=== PATIENT | male | born 1995 | race Caucasian/White ===

== ENCOUNTER 2016-10-20 06:12 | Observation (INO) | payer OTHER ==
[2016-10-20] MEDS ORDERED: LORazepam INJ* 2 MG/ML 1 ML VIAL IV PUSH ONE (08:11)
[2016-10-20 08:29] LABS: Hematocrit 43 % (42-52); Hemoglobin 14.8 g/dl (14.0-18.0); Mean Corpuscular HGB Conc 34 g/dl (31-36); Mean Corpuscular Hemoglobin 30 pg (27-31); Mean Corpuscular Volume 87 fL (80-94); Mean Platelet Volume 10 um3 (7.4-10.4); Red Blood Count 4.99 10^6/ul (4.0-5.4); Red Cell Distribution Width 14 % (10.5-15); White Blood Count 6.7 10^3/ul (3.5-10.8)
[2016-10-20 08:41] LABS: ALT 20 U/L (7-52); AST 22 U/L (13-39); Albumin 4.8 g/dL (3.2-5.2); Alkaline Phosphatase 65 U/L (34-104); Anion Gap 9 mmol/L (2-11); BUN/Creatinine Ratio 19.8 (8-20); Blood Urea Nitrogen 19 mg/dL (6-24); CO2 Carbon Dioxide 26 mmol/L (22-32); Calcium 10.1 mg/dL (8.6-10.3); Chloride 101 mmol/L (101-111); EGFR Non-African American 97.9 (>60); Globulin 3.1 g/dL (2-4); Glucose 99 mg/dL (70-100); Potassium 3.6 mmol/L (3.5-5.0); Sodium 136 mmol/L (133-145); Total Protein 7.9 g/dL (6.4-8.9)
[2016-10-20] MEDS: NS 0.9% 1000 ML* 2,000 ML IV ONE ×2 (08:43→09:18)
[2016-10-20 09:04] LABS: Acetaminophen < 15 mcg/mL; Alcohol < 10 mg/dL (<10); Salicylate < 2.50 mg/dL (<30)
[2016-10-20 09:15] LABS: TSH (Thyroid Stimulating Horm) 3.86 mcIU/mL (0.34-5.60)
[2016-10-20] MEDS: NS 0.9% 1000 ML* 1,000 ML IV SCH ×2 (10:30→22:45)
[2016-10-20] MEDS ORDERED: LORazepam INJ* 2 MG/ML 1 ML VIAL IV PUSH PRN (11:17)
[2016-10-20] MEDS ORDERED: Acetaminophen TAB* 325 MG PO PRN (11:20)
[2016-10-20 11:49] LABS: Creatine Kinase 64 U/L (10-223)
[2016-10-20 12:55] LABS: Urine Bilirubin Negative (Negative); Urine Glucose Negative (Negative); Urine Nitrite Negative (Negative)
[2016-10-20 13:01] LABS: Benzodiazepine Urine Screen None Detected (None Detect)
--- NOTE | 2016-10-20 16:12 | HP ---
HISTORY AND PHYSICAL: DATE OF ADMISSION: 10/20/16 TIME OF EVALUATION: 09:45 a.m. CHIEF COMPLAINT: "I am shaking." HISTORY OF PRESENT ILLNESS: Mr. Carpio is a 21-year-old male with a past medical history of depression who presents to the emergency room with complaints of being jittery, shaky, unable to sleep for the past 3 days. The patient has a history of depression and has been on Pristiq for a couple of years and on Wellbutrin for the past 6 months. He says that he developed a cold last week and he started to take NyQuil and Mucinex over the counter. He was okay during the weekend, but 3 days ago he took 1 Adderall pill "not prescribed to him, provided by a friend" to stay awake and be able to finish a paper. He states that night he was able to sleep for 4 hours, but after that he was not able to sleep since today. He states that this morning he was feeling a little bit of balance when he was taking a shower and after that he noticed that he was very shaky. He lied down and he felt that his heart was racing, pounding and he started to have muscle contractions. He did some search on the [facility] website and got very concerned about interactions between all his medications and decided to come to the emergency room. He denies fever, but did have some chills over the weekend. Overall he feels that his cold is improved, but the major complaint at this point is palpitations and tremors. PAST MEDICAL HISTORY: 1. Depression. 2. Anxiety. MEDICATION LIST: 1. Bupropion SR 100 mg p.o. q.p.m. 2. Bupropion XL 150 mg p.o. q.a.m. 3. Desvenlafaxine 50 mg p.o. q.p.m. ALLERGIES: No known drug allergies. FAMILY HISTORY: His mother has a history of thyroid disease and depression. SOCIAL HISTORY: The patient is a student at [employer]. He denies tobacco abuse. States that he drinks 4 beers a week usually during the weekend. He smokes marijuana 2 to 3 times a week. Three days ago was the first time he took Adderall. He denies using heroin and experimented with cocaine only once. Surrogate decision maker is his mother, Cora Carpio, phone number is [phone]. REVIEW OF SYSTEMS: A 14-point review of systems was performed and all the pertinent negative and positive findings are in the HPI. PHYSICAL EXAMINATION GENERAL: The patient is a pleasant young male lying in the ER stretcher in no acute distress. VITAL SIGNS: Temperature 97.7, heart rate is 89, respiratory rate is 16, oxygen saturation is 100% on room air, blood pressure 105/72. HEENT: Pupils are equal. Moist mucous membranes. CHEST: Breath sounds present bilaterally with no added sounds. CVS: Normal S1 and S2. Regular rate and rhythm. ABDOMEN: Soft, nontender, and nondistended. Bowel sounds are present. EXTREMITIES: No edema. Mild tremor. NEUROLOGIC: He is alert, awake, oriented x3. Able to move all 4 extremities. There is hyperreflexia of lower extremities. LABORATORY AND IMAGING DATA: The patient had a mostly normal CBC. The only changes are mild lymphopenia of 23% and mild monocytosis of 10%. His chemistries were normal including renal function and LFTs. Urinalysis was normal. Urine toxicology was positive for cannabinoids, salicylates, acetaminophen, and alcohol level are all negative. EKG done on 10/20/16 at 08:39 a.m. showed sinus rhythm at 82 beats per minute with early repolarization pattern, but no signs of ischemia. There is no prior EKG to compare. ASSESSMENT AND PLAN: Mr. Carpio is a 21-year-old male with a past medical history of depression who presents to the emergency room with complaints of palpitations , tremors, muscle spasms likely secondary to mild serotonin syndrome. 1. Mild serotonin syndrome. Suspect this is secondary to combination of Pristiq with NyQuil plus Adderall. This appears to be resolving as during my evaluation, he had very mild tremors and no more muscle spasms, but he still has some hyperreflexia. No inducible clonus. He will be admitted as observation to telemetry floor. We are going to continue IV hydration and give benzodiazepines as needed. The patient was educated about serotonin syndrome especially because he is on Pristiq medical terminologist, so he needs to be careful about any other medications he takes, so this does not recur. He was very regretful about talking the Adderall and states that he has "learned his lesson." 2. Depression. I am going to hold his Wellbutrin and Pristiq today, but if he is feeling better by tomorrow, I think it can be resumed. 3. DVT prophylaxis. The patient has no risk factors and we are going to encourage ambulation. 4. Code status is full. TIME SPENT: Approximately 45 minutes was spent with the patient interview, medical records review, physical examination to complete the admission; more than half of this time was spent [id number] with the patient and coordination of care. CC: Jensen Espino MD, Interim Nursing Consultant at [facility]/ [facility] * [id number]/CPS #: [id number] MTDD
[2016-10-21 03:17] LABS: Urine Bilirubin Negative (Negative); Urine Glucose Negative (Negative); Urine Nitrite Negative (Negative)
[2016-10-21 03:30] LABS: Benzodiazepine Urine Screen None Detected (None Detect)
--- NOTE | 2016-10-21 07:35 | ED ---
Piyush Ballard Salem, scribed for Lenny Bain MD on 10/20/16 at 0717 . Complex/Multi-Sys Presentation - HPI Summary HPI Summary: Patient is a 21 y/o male who presents to the ED with an adverse reaction since a couple of days. He reports cold sx that began 7 days ago (sx include congestion, rhinorrhea, and cough), but have now been resolved. Pt states he is on prescription of 50mg Pristiq in the evening, 100mg of Wellbutrin SR also in the evening, and 150mg of Wellbutrin XL in the morning. He has also been taking Dayquil (twice a day), Nyquil, and Mucinex for the past week, as well as continuing to take his usual supplements (which include Transform thermogenic energizer and Leanmode EVL). Pt also took 5mg of Adderall 2 days ago that was not prescribed to him. He reports feeling muddled for the last 5 hours, along with muscle spasms, diarrhea (following the Adderall), twitching (since 4 hours) , jitters, stomach cramps, and loss of sleep (approximately 4 hours of sleep in the past 48 hours). Pt states his last Nyquil was at 0200. He denies hx of anxiety attacks. - History Of Current Complaint Chief Complaint: EDAllergicReaction Hx Obtained From: Patient Onset/Duration: Gradual Onset, Lasting Days, Still Present Timing: Constant Severity Currently: Moderate Severity Initially: Moderate Associated Signs And Symptoms: Positive: Confusion - Feeling "muddled.", Diarrhea, Other - Muscle spasms, jitters, twitching, stomach cramps, and loss of sleep. - Allergies/Home Medications Allergies/Adverse Reactions: Allergies Allergy/AdvReac Type Severity Reaction Status Date / Time No Known Allergies Allergy Verified 10/20/16 06:21 PMH/Surg Hx/FS Hx/Imm Hx Respiratory History: Reports: Hx Asthma - A CHILD, Other Respiratory Problems /Disorders - PNA Infectious Disease History: Yes Infectious Disease History: Denies: Traveled Outside the [place] in Last 30 Days - Family History Known Family History: Negative: Respiratory Disease - Social History Occupation: Student Alcohol Use: Occasionally Hx Substance Use: No Substance Use Type: Reports: None Hx Tobacco Use: No Smoking Status (MU): Never Smoked Tobacco Review of Systems Positive: Other - Loss of sleep. . Negative: Fever, Chills Negative: Erythema Positive: Nasal Discharge - secondary to cold sx. . Negative: Sore Throat Negative: Chest Pain Negative: Shortness Of Breath, Cough Positive: Diarrhea, Other - Stomach cramps. . Negative: Abdominal Pain, Vomiting, Nausea Negative: dysuria, hematuria Positive: Other - Muscle spasm. Jitters. Twitching. . Negative: Myalgia, Edema Negative: Rash Neurological: Other - No dizziness. Psychological: Other - Feeling "muddled." All Other Systems Reviewed And Are Negative: Yes Physical Exam - Summary Physical Exam Summary: Constitutional: Well-developed, Well-nourished, Alert. (-) Distressed Skin: Warm, Dry HENT: Normocephalic; Atraumatic Eyes: Conjunctiva normal. No nystagmus. Neck: Musculoskeletal ROM normal neck. (-) JVD, (-) Stridor, (-) Tracheal deviation Cardio: Rhythm regular, rate normal, Heart sounds normal; Intact distal pulses; The pedal pulses are 2+ and symmetric. Radial pulses are 2+ and symmetric. (-) Murmur Pulmonary/Chest wall: Effort normal. (-) Respiratory distress, (-) Wheezes, (-) Rales Abd: Soft, (-) Tenderness, (-) Distension, (-) Guarding, (-) Rebound. Hyperactive bowel sounds. Musculoskeletal: (-) Edema, Mild tremors when holding arms out straight. Hyperreflexive. Babinski reflex equivocal. Lymph: (-) Cervical adenopathy Neuro: Alert, Oriented x3 Psych: Mood and affect Normal Triage Information Reviewed: Yes Vital Signs On Initial Exam: Initial Vitals Temp Pulse Resp BP Pulse Ox 97.7 F 104 15 167/100 100 10/20/16 06:13 10/20/16 06:13 10/20/16 06:13 10/20/16 06:13 10/20/16 06:13 Vital Signs Reviewed: Yes Diagnostics - Vital Signs Vital Signs Temp Pulse Resp BP Pulse Ox 10/20/16 06:13 97.7 F 104 15 167/100 100 - Laboratory Result Diagrams: 10/20/16 08:15 10/20/16 08:15 Lab Statement: Any lab studies that have been ordered have been reviewed, and results considered in the medical decision making process. - EKG 0839 EKG Interpretation: NSR 82 bpm. Sinus rhythm. No STEMI. Re-Evaluation - Re-Evaluation First Eval Re-Evaluation Time: 09:48 Comment: Stable. Complex Multi-Symp Course/Dx Course Of Treatment: Pt came in for adverse reactions. Called poison control and spoke to hospitalist about admitting. Pt was give IV fluids and Lorazepam in the ED. EKG was negative. - Diagnoses Provider Diagnoses: Serotonin syndrome - Physician Notifications Discussed Care Of Patient With: Poison control @0809. They recommended IV fluids , benzodiazepines and Cyproheptadine. Dr. Pool (Hospitalist) @ 0819. Discussed pt's condition. Will inform her when lab results are back. Discharge - Discharge Plan Condition: Stable Disposition: ADMITTED TO [facility] Referrals: [facility] LISA Sotelo [Primary Care Provider] - The documentation as recorded by the Piyush rosas Salem accurately reflects the service I personally performed and the decisions made by me, Lenny Bain MD.
[2016-10-21 09:12] VITALS: BP 118/63
--- NOTE | 2016-10-21 09:35 | PN ---
Progress Note - Progress Note Note: The patient is back to his baseline, feels well and is anxious to go home. Nl PE, heart reg without murmur or rub. He shows a good understanding of how he got ill. Discharge now.
[2016-10-21] MEDS ORDERED: BuPROPion XL* 150 MG TAB.XL PO SCH (10:00)
--- NOTE | 2016-10-21 10:05 | DS ---
DATE OF ADMISSION: 10/20/2016. DATE OF DISCHARGE: 10/21/2016. HISTORY: This 21-year-old man presented with shakiness and inability to sleep for three days. He d eveloped a cold. He took NyQuil and Mucinex and three days before admission took an Adderall pill p rovided by a friend. The morning of admission he felt off balance. He had not been able to sleep f or the past few days. He was very shaky. He thought his heart was racing. I note that the patient does quite a lot of physical exercise with weightlifting and running three t o four miles at a time and he says his resting heart rate is usually in the 50s. The rest of the history and physical is detailed in the admission note. The patient was monitored on Telemetry. Laboratory tests were unremarkable. ECG showed sinus bradycardia in the upper 40s. He had occasional PAC's on the monitor. The patient felt back to normal on the day of discharge. He was advised to resume his usual medicat ions. He understands he is not supposed to take any over the counter or prescription medications wi thout consulting with his doctor. I also suggested he consult with the prescriber of his medication s to see if he was suitable for a lower dose. FINAL DIAGNOSES: 1. Serotonin syndrome. 2. Depression. 3. Anxiety. MEDICATIONS ON DISCHARGE: 1. Bupropion SR 100 mg in the evening. 2. Desvenlafaxine 50 mg in the evening. 3. Bupropion XL 150 mg in the morning. [id number]/[facility] #: [id number]
[2016-10-21] MEDS ORDERED: Desvenlafaxine (NF) 50 MG TAB PO SCH (18:00)
[2016-10-21] MEDS ORDERED: buPROPion SR TAB.SR* 100 MG PO SCH (18:00)
== END 2016-10-21 10:55 | disposition home or self-care (01) ==
LOC: ED 06:12 → MEDTELE 09:46
PROVIDERS: ADMIT Internal Medicine; ATTEND Internal Medicine
DX: T43.211A Poisoning by selective serotonin and norepinephrine reuptake inhibitors, accidental (unintentional), initial encounter (principal); T43.291A Poisoning by other antidepressants, accidental (unintentional), initial encounter; T43.621A Poisoning by amphetamines, accidental (unintentional), initial encounter; G47.00 Insomnia, unspecified; R25.9 Unspecified abnormal involuntary movements; R10.9 Unspecified abdominal pain; M62.838 Other muscle spasm; Y92.9 Unspecified place or not applicable; F32.9 Major depressive disorder, single episode, unspecified; F41.9 Anxiety disorder, unspecified; R00.1 Bradycardia, unspecified
CPT/HCPCS: 36415; 80053; 80307; 80320; 80329; 81003; 82550; 84443; 85025; 93005; 96361; 96374; 99284; G0378; G0480; J2060